=== PATIENT | female | born 1950 | race Asian ===

== ENCOUNTER 2017-09-04 16:15 | Inpatient (IN) | payer MEDICARE, OTHER ==
[2017-09-04] VITALS (11 sets, daily range): BP systolic 97–150; BP diastolic 56–96
[~2017-09-04] VITALS: Ht 152.4 cm; Wt 46.3 kg
--- NOTE | 2017-09-04 17:20 | ER.PDOC ---
General Chief Complaint: General Complaint Stated Complaint: HYPOTENSIVE TRAVEL OUT OF US: No Time seen by MD: 16:50 Source: patient, EMS, other (health care sanitary technician) Exam Limitations: other (poor historian) History of Present Illness Initial Comments Pt lives at home and has 24 hr caretakers who state BP has been low for a couple days. HH came today to begin OP care of wound and found BP low 80s and called EMS who treated pt w/ fluids. And Rescue Fire Fighter Crash Fire states she has periods where she doesn't recognize people and that is baselinebut also when BP low she has depressed MS. Pt at baseline now. Pt w/o specific c/o and health care sanitary technician states pt has remote hx of substance abuse and OD. commercial census taker relates pt has been incont of stool and urine w/o diarrhea, but here , pt informed nursing and was coop w/ urine w/o incont.. Pt has hx of cva w/ R hemiparesis and unchanged by her report. Of note, pt fell a week ago and has a scalp bruise, yellow. Timing/Duration: unsure Severity: moderate Modifying Factors: improves with other Associated Symptoms: denies symptoms Allergies: Coded Allergies: Penicillins (Verified Allergy, Unknown, Rash, 09/04/17) iodine (Verified Allergy, Unknown, 09/04/17) latex (Verified Allergy, Unknown, 09/04/17) Home Meds Reported Medications Spironolactone 25MG (ALDACTONE 25MG) 25 Mg Tablet, 25 MG PO DAILY24, TAB 09/04/17 Atorvastatin 40MG (LIPITOR 40MG) 40 Mg Tablet, 40 MG PO DAILY24, TAB 09/04/17 Aspirin (ASPIR 81) 81 Mg Tablet.dr, 1 TAB PO DAILY, #30 TAB 5 Refills 09/04/17 Hydrochlorothiazide (HYDROCHLOROTHIAZIDE) 25 Mg Tablet, 1 TAB PO DAILY, #90 TAB 3 Refills 09/04/17 Clonazepam (CLONAZEPAM) 1 Mg Tablet, 1 TAB PO TID, #90 TAB 2 Refills 09/04/17 Temazepam (RESTORIL) 30 Mg Capsule, 1 CAP PO HS, #30 CAP 09/04/17 Duloxetine Hcl (CYMBALTA) 30 Mg Capsule.dr, 30 MG PO DAILY24 09/04/17 Gabapentin (GABAPENTIN) 400 Mg Capsule, 400 MG PO TID, CAPSULE 09/04/17 Metoprolol Tartrate 50MG (LOPRESSER 50MG) 50 Mg Tablet, 50 MG PO BID for HYPERTENSION, #60 TAB 09/04/17 Baclofen (BACLOFEN) 10 Mg Tablet, 10 MG PO TID, TABLET 09/04/17 Diclofenac Sodium (DICLOFENAC SODIUM) 75 Mg Tablet.dr, 75 MG PO BID 09/04/17 Pregabalin (LYRICA) 25 Mg Capsule, 25 MG PO TID, CAPSULE 09/04/17 Lisinopril (LISINOPRIL) 10 Mg Tablet, 1 TAB PO DAILY, #30 TAB 5 Refills 09/04/17 Cetirizine Hcl (ZYRTEC) 10 Mg Tablet, 10 MG PO DAILY24, TABLET 09/04/17 Clonidine Hcl (CLONIDINE HCL) 0.1 Mg Tablet, 1 TAB PO BID, #30 TAB 2 Refills 09/04/17 Past Medical History Medical History: CVA/TIA/stroke, heart attack, hypertension, other (foot ulcer) Social History Smoking: non-smoker Reviewed Nursing Reviewed: Vital Signs, Abn. Noted, Nursing Assessment Review of Systems Constitutional: denies diaphoresis, denies fever, denies weakness EENTM: denies blurred vision, denies double vision, denies throat pain Respiratory: denies cough, denies orthopnea, denies shortness of breath, denies wheezing Cardiovascular: denies chest pain, denies edema, denies palpitations, denies syncope Gastrointestinal: denies abdominal pain, denies diarrhea, denies nausea, denies vomiting Genitourinary: denies dysuria, denies frequency Musculoskeletal: denies back pain, denies joint swelling, denies muscle pain Skin: see HPI, denies change in color, denies rash, other Psychiatric/Neurological: see HPI All Other Systems: Reviewed and Negative Physical Exam General Appearance: No Apparent Distress, WD/WN EENT: eyes nml inspection, nml ENT inspection (scalp yellow hematoma), pharynx nml Neck: Non-Tender, Full Range of Motion Respiratory: chest non-tender, lungs clear, normal breath sounds, no respiratory distress CVS: reg rate & rhythm, no murmur, no gallop, pulses nml, nml capillary refill Gastrointestinal: Normal Bowel Sounds, No Organomegaly, No Pulsatile Mass, Non Tender Back: Normal Inspection, No CVA Tenderness, No Vertebral Tenderness Extremities: Other (no use of RUE RLE) Neurologic/Psychiatric: day care assistant II-XII NML as Tested, No Motor/Sensory Deficits, Alert, Normal Mood/Affect, Oriented x 3, Motor Weakness (no change in baseline) Skin: Normal Color, Warm/Dry, Other (breakdown L planter surface w/o infection) Results/Orders Results/Orders Laboratory Tests Test 09/04/17 00:00 09/04/17 17:40 09/04/17 17:50 09/04/17 19:10 Urine Collection Type CATH VOID Urine Color STRAW (YELLOW) YELLOW (YELLOW) Urine Appearance CLEAR (CLEAR) CLOUDY (CLEAR) Urine Bilirubin NEGATIVE MG/DL (NEGATIVE) NEGATIVE MG/DL (NEGATIVE) Urine Ketones 5 mg/dL (NEGATIVE) 5 mg/dL (NEGATIVE) Urine Specific [place] 1.005 (1.005-1.035) 1.010 (1.005-1.035) Urine pH 5 (5.0-6.0) 5 (5.0-6.0) Urine Protein NEGATIVE (NEGATIVE) NEGATIVE (NEGATIVE) Urine Urobilinogen NORMAL (NEGATIVE) NORMAL (NEGATIVE) Urine Nitrate POSITIVE (NEGATIVE) POSITIVE (NEGATIVE) Urine Leukocyte Esterase NEGATIVE (NEGATIVE) NEGATIVE (NEGATIVE) Urine Blood NEGATIVE (NEGATIVE) NEGATIVE (NEGATIVE) Urine RBC NONE SEEN RBC/HPF (NONE 0-2 RBC/HPF (NONE SEEN) Urine WBC 0-2 WBC/HPF (0-2) 5-10 WBC/HPF (0-2) Urine Squamous Epithelial Cells NONE SEEN #/HPF (FEW) FEW #/HPF (FEW) Urine Bacteria FEW (NONE SEEN) MANY (NONE SEEN) Urine Glucose NORMAL (NEGATIVE) NORMAL (NEGATIVE) White Blood Count 7.9 10^3/uL (4.5-11.0) Red Blood Count 4.36 10^6/uL (4.00-5.20) Hemoglobin 10.5 g/dL (12.0-15.0) Hematocrit 33.8 % (36.0-46.0) Mean Corpuscular Volume 77.5 fL (78-100) Mean Corpuscular Hemoglobin 24.1 pg (26-34) Mean Corpuscular Hemoglobin Concent 31.1 g/dL (33-37) Red Cell Distribution Width 22.4 % (11.5-14.5) Platelet Count 196 10^3/uL (150-400) Mean Platelet Volume 11.3 fL (7.8-11.0) Neutrophils (%) (Auto) 52.2 % (41.0-85.0) Lymphocytes (%) (Auto) 35.5 % (24.0-44.0) Monocytes (%) (Auto) 7.3 % (5.0-12.0) Neutrophils # (Auto) 4.1 10^3/uL (1.8-7.7) Lymphocytes # (Auto) 2.8 10^3/uL (1.0-4.8) Monocytes # (Auto) 0.6 10^3/uL (0.3-0.8) Absolute Immature Granulocyte (auto 0.02 10^3 u/L (0-2) Eosinophils % 4.1 % (0.0-5.0) Basophils % 0.6 % (0.0-0.2) Basophils # 0.1 10^3/uL (0.0-0.1) Eosinophil Count 0.3 10^3/uL (0.0-0.2) Prothrombin Time 10.3 SEC (9.8-11.9) Prothrombin Time INR (Non-Therap) 1.0 Activated Partial Thromboplast Time 26.7 SEC (24.67-30.72) D-Dimer 1.17 mg/L (0.19-0.49) Sodium Level 130 mmol/L (132-145) Potassium Level 5.4 mmol/L (3.6-5.2) Chloride Level 102.0 mmol/L (96-109) Carbon Dioxide Level 17.2 mmol/L (20.0-32) Anion Gap 16.2 Blood Urea Nitrogen 52 mg/dL (7-18) Creatinine 1.49 mg/dL (0.59-1.40) Estimated GFR () 42.4 (>/=60) BUN/Creatinine Ratio 34.0 Glucose Level 70 mg/dL (70-110) Calcium Level 8.3 mg/dL (8.4-10.5) Total Bilirubin 0.5 mg/dL (0.2-1.0) Aspartate Amino Transf (AST/SGOT) 31 U/L (0-35) Alanine Aminotransferase (ALT/SGPT) 22 U/L (12-78) Alkaline Phosphatase 74 U/L (50-136) Troponin I < 0.02 ng/mL (0.00-0.05) Pro-B-Type Natriuretic Peptide 118 pg/mL (0-125) Total Protein 6.5 g/dL (6.4-8.2) Albumin 2.9 g/dL (3.4-5.0) Globulin 3.6 Percent Immature Gran (Cell Imm) 0.30 % (0.00-0.50) Helicobacter pylori Screen NEGATIVE (NEGATIVE) Urine Opiates (GC/MS) NEGATIVE ng/mL (CUT-OFF:300) Urine Amphetamine Qualitative NEGATIVE ng/mL (CUTOFF:1000) Urine Barbiturates, Qualitative NEGATIVE ng/mL (CUT-OFF:200) Ur Tricyclic Antidepressants Screen NEGATIVE Urine Phencyclidine (PCP) (TLC) NEGATIVE ng/mL (CUT-OFF:25) Urine Benzodiazepines, Qualitative POSITIVE ng/mL (CUT-OFF:200) Urine Cocaine Qualitative NEGATIVE ng/mL (CUT-OFF:300) Ur Tetrahydrocannabinol (THC) Scrn POSITIVE ng/mL (CUT-OFF:50) Blood Gas Sample Site LEFT BRACHIAL ARTRY Blood Gas pH 7.310 (7.350-7.450) Blood Gas PCO2 39.4 mmHg (35.0-45.0) Blood Gas PO2 69.1 mmHg (75.0-100.0) Blood Gas HCO3 19.4 mmol/L (22.0-26.0) Blood Gas Base Excess -6.4 mmol/L (-2.0-2.0) Peter Test N/A Arterial Blood Oxygen Saturation 91.0 % (95-) Deoxyhemoglobin 8.7 % (0.2-0.6) Carboxyhemoglobin 3.5 % (0.5-1.5) Methemoglobin 0.3 % (0.2-0.6) Total Hemoglobin 11.2 % (13.5-17.5) Total Oxygen Concentration 13.8 % (13.5-17.5) Lactic Acid (Blood Gas) 0.8 MMOL/L (0.5-1.0) Oxygen Delivery Method (LAB) RA FiO2 21 % (20-101) Bicarbonate 20.6 mmol/L (23-27) Administered Medications Medications (Trade) Dose Ordered Sig/Rd Route PRN Reason Start Time Stop Time Status Last Admin Dose Admin Sodium Chloride 1,000 ml @ 1,200 mls/hr Q50M STAT IV 09/04/17 19:01 09/04/17 19:50 DC 09/04/17 19:17 Ceftriaxone Sodium 1000 mg/ Sodium Chloride 100 ml @ 100 mls/hr STAT IV 09/04/17 19:30 10/04/17 19:29 09/04/17 20:16 Atropine Sulfate (Atropine Sulfate) 0.5 mg STAT STAT IV 09/04/17 19:53 09/04/17 19:54 DC 09/04/17 20:10 Progress Progress Bp has been 100s here and pt caox3 and aware of why she was sent and w/o c/o will obs overnight if no other findings. R/o ICH, [place], Infection, PE, substance use/abuse Bp now dropped and HR 47, will tx atropine, fluid bolus, unable to do PE study given renal failure, will hydrate, Lovinox and study after improved renal function; Dx. Ac Metabolic Acidosis hypotension Bradycardia hyponatremia Acute Renal Failure Substance Abuse R/O SAGAR poss uti-- will tx w/ rocephin EKG/XRAY/CT/US EKG Comments: sinus clement 54, no acute ST changes XRAY: chest XRAY Comments: nad CT Comments: no acute on CT head Consult/PCP Time Consult/PCP Called: 19:45 Consult/PCP: Niko Reason/Comments: admit ICU Departure Time of Disposition: 19:45 Disposition: 09 ADMITTED INPATIENT Impression: Primary Impression: Hypotension Qualified Codes: I95.9 - Hypotension, unspecified Additional Impressions: Bradycardia Acute renal failure Qualified Codes: N17.9 - Acute kidney failure, unspecified Metabolic acidosis Condition: Critical Referrals: PCP,UNKNOWN (PCP) PRIMARY CARE PROVIDER Duration or Time Spent with Pa: 45 Critical Care Note Total Time (mins): 35 MARLENA AMAYA MD Sep 04, 2017 17:20
[2017-09-04] MEDS ORDERED: ASPIRIN PO PRN (17:30)
--- NOTE | 2017-09-04 17:38 | NUR ---
Yogi Spoke to Jen from [facility]. She stated that this was her first visit was today but that she had talked to Dr. Cruz, the patients certified midwife, nurse who told her that her blood pressure runs around 106/60. Jen gave me an updated medication list. She stated that there are cargivers in the house but are not there all the time. There is also a homeless man that comes in and out. Patients medication is set up by caregivers but not always given to patient if they are not present. Jen [facility]-[phone]
--- NOTE | 2017-09-04 17:41 | PCM.EKG ---
[facility] Test Date: 2017-09-04 Test Time: 17:42:14 Pat Name: MEENA GUERRERO [facility]: [id number]2 Gender: F Shotblaster: : 1950 Requested By: BRYAN AMAYA Order Number: [id number] Reading MD: Bryan Amaya Measurements Intervals [place] Rate: 54 P: 38 [place]: 170 QRS: 2 QRSD: 90 T: 9 QT: 470 QTc: 445 Interpretive Statements Sinus bradycardia Otherwise normal ECG No previous ECG available for comparison Electronically Signed On 09-05-2017 1:57:39 CDT by Bryan Amaya Please click the below link to view image of tracing.
[2017-09-04 17:42] LABS: BASOPHIL # 0.1 10^3/uL (0.0-0.1); BASOPHIL % 0.6 % (0.0-0.2); EOSINOPHIL # 0.3 10^3/uL (0.0-0.2); EOSINOPHIL % 4.1 % (0.0-5.0); HEMOGLOBIN 10.5 g/dL (12.0-15.0); LYMPHOCYTES # 2.8 10^3/uL (1.0-4.8); LYMPHOCYTES % 35.5 % (24.0-44.0); MEAN CELL HGB 24.1 pg (26-34); MEAN CELL HGB CONCENTRATION 31.1 g/dL (33-37); MEAN CORP VOLUME 77.5 fL (78-100); MEAN PLATELET VOLUME 11.3 fL (7.8-11.0); MONOCYTES # 0.6 10^3/uL (0.3-0.8); MONOCYTES % 7.3 % (5.0-12.0); NEUTROPHIL # 4.1 10^3/uL (1.8-7.7); NEUTROPHILS % 52.2 % (41.0-85.0); RED CELL DISTRIBUTION WIDTH 22.4 % (11.5-14.5); WHITE BLOOD CELL 7.9 10^3/uL (4.5-11.0)
--- NOTE | 2017-09-04 17:50 | NUR ---
CT Patient going to CT at this time
--- NOTE | 2017-09-04 17:51 | DIREP ---
PROCEDURE:CHEST 1 VIEW COMPARISON:None. INDICATIONS:hypotension FINDINGS: LUNGS/PLEURA:Lungs are clear of focal consolidation. No evidence of pleural effusion. VASCULATURE:Unremarkable pulmonary vasculature. CARDIAC:No cardiac silhouette abnormality or cardiomegaly. CHRISTINE/MEDIASTINUM:No visible mass or adenopathy. BONES:No acute fracture. OTHER:Patient is kyphotic. No additional findings. CONCLUSION: 1. No acute cardiopulmonary changes. Dictated by: Eric Saldivar M.D. on 09/04/2017 at 05:50 PM
[2017-09-04 17:54] LABS: BILIRUBIN,URINE NEGATIVE (NEGATIVE); UROBILINOGEN,URINE NORMAL (NEGATIVE)
[2017-09-04 18:01] LABS: APPEARANCE,URINE CLOUDY (CLEAR); UA COLOR YELLOW (YELLOW)
[2017-09-04] MEDS ORDERED: CETI10TA24 PO (18:02)
[2017-09-04] MEDS ORDERED: CLON0.1T PO (18:02)
[2017-09-04] MEDS ORDERED: LISI10TA2 PO (18:03)
[2017-09-04] MEDS ORDERED: PREG25CA PO (18:04)
[2017-09-04 18:07] LABS: ALANINE AMINOTRANSFERASE(ML) 22 U/L (12-78); ALKALINE PHOSPHATASE 74 U/L (50-136); ASPARTATE AMINO TRANSFERASE 31 U/L (0-35); CALCIUM 8.3 mg/dL (8.4-10.5); CARBON DIOXIDE 17.2 mmol/L (20.0-32); GLUCOSE 70 mg/dL (70-110)
--- NOTE | 2017-09-04 18:10 | DIREP ---
PROCEDURE: CT HEAD BRAIN W/O CONTRAST TECHNIQUE:Axial acquisition. Noncontrast COMPARISON:None. INDICATIONS:ams/fall FINDINGS: VENTRICLES:Mild Porencephalic dilatation of the posterior left lateral ventricle and the occipital horn. CEREBRUM:Focal hypodense white matter in the left occipital parietal cortex and subjacent white matter. This extends into the centrum semiovale on the left. There is a single focus of encephalomalacia right occipital lobe with the midline. These represent old CVAs CEREBELLUM:Normal. BRAINSTEM:Normal. SKULL:Normal. SINUSES:Normal. OTHER:Negative. CONCLUSION:Old left occipital parietal is CVA. Small lacunar type infarct occipital lobe right Dictated by: Molina Fan MD on 09/04/2017 at 06:06 PM
[2017-09-04] MEDS ORDERED: DICL75TA2 PO (18:14)
[2017-09-04] MEDS ORDERED: BACL10TA PO (18:19)
[2017-09-04] MEDS ORDERED: METO50TA2 PO (18:23)
[2017-09-04] MEDS ORDERED: GABA400C10 PO (18:25)
[2017-09-04] MEDS ORDERED: DULO30CA2 PO (18:26)
[2017-09-04] MEDS ORDERED: TEMA30CA6 PO (18:27)
[2017-09-04] MEDS ORDERED: CLON1TAB3 PO (18:28)
[2017-09-04] MEDS ORDERED: HYDR25TA9 PO (18:29)
[2017-09-04] MEDS ORDERED: ASPI-484 PO (18:30)
[2017-09-04] MEDS ORDERED: ATOR40TA PO (18:31)
[2017-09-04] MEDS ORDERED: SPIR25TA PO (18:32)
[2017-09-04] MEDS ORDERED: NS 1000ML 1,000 ML IV STA (19:01)
[2017-09-04] MEDS ORDERED: ROCEPHIN ONE (19:07)
[2017-09-04] MEDS ORDERED: NS 100ML 100 ML IV ONE (19:07)
[2017-09-04] MEDS ORDERED: NS 1000ML 1,000 ML ONE (19:07)
[2017-09-04 19:24] LABS: ABG PCO2 39.4 mmHg (35.0-45.0); BE(B) -6.4 mmol/L (-2.0-2.0); HCO3act 19.4 mmol/L (22.0-26.0); pO2 69.1 mmHg (75.0-100.0)
[2017-09-04] MEDS ORDERED: ROCEPHIN 1,000 MG in NS 100ML 100 ML IV SCH ×2 (19:30→20:30)
[2017-09-04] MEDS ORDERED: ATROPINE SULFATE ONE (19:51)
[2017-09-04] MEDS ORDERED: ATROPINE SULFATE IV STA (19:53)
--- NOTE | 2017-09-04 19:54 | NUR ---
Niko Vick on phone with Dr. Pope
[2017-09-04] MEDS ORDERED: LOVENOX SQ STA (19:58)
[2017-09-04] MEDS ORDERED: ASPIRIN PO STA (19:58)
[2017-09-04] MEDS ORDERED: ASPIRIN ONE (20:12)
[2017-09-04] MEDS ORDERED: LOVENOX SQ ONE (20:12)
[2017-09-04] MEDS ORDERED: ZOFRAN IV PRN (20:30)
[2017-09-04] MEDS ORDERED: NS 1000ML 1,000 ML SCH (20:30)
[2017-09-04] MEDS ORDERED: LIPITOR PO SCH (20:30)
[2017-09-04] MEDS ORDERED: VENTOLIN IH PRN (20:30)
[2017-09-04] MEDS ORDERED: DUONEB 0.5 MG-3 MG/3 ML SOLN IH SCH (20:30)
[2017-09-04] MEDS ORDERED: TYLENOL PO PRN (20:30)
[2017-09-04] MEDS ORDERED: LYRICA PO SCH (21:00)
[2017-09-04] MEDS ORDERED: VOLTAREN PO SCH (21:00)
[2017-09-04] MEDS ORDERED: RESTORIL PO SCH (21:00)
--- NOTE | 2017-09-04 21:13 | NUR ---
Admit ICU 2 Patient admitted to ICU 2 via stretcher accompanied by ER ASSOCIATE PROFESSOR OF ART HISTORY, and private caregiver. Patient assisted to bed with assist x3 and lateral transfer. Patient positioned to comfort, clothes removed and hospital gown applied. Monitor applied in usual fashion. Patient on room air, drowsy though oriented. IV patent to right AC. Call light placed in reach. Patient provided with room orientation. Private caregiver inquired about staying at bedside with patient. Reviewed ICU visiting hour procedures, including she may stay with patient in room, though there may be times she may be need to sit in waiting area due to procedures with other patients per HIPPA. Offered to allow caregiver to stay in room tonight with the understanding that this could change based on patient condition and ICU routines. Caregiver voiced wanting to be at bedside and not going between waiting area and bedside. This nurse again offered to allow caregiver to stay at bedside tonight, though caregiver declined. Admission history provided by caregiver, due to patient refusal to answer questions.
[2017-09-04] MEDS ORDERED: LOVENOX SQ SCH (21:30)
[2017-09-04] MEDS: NS 1000ML 1,000 ML IV SCH ×2 (21:40→22:00)
[2017-09-04] MEDS: LOPRESSOR PO SCH (21:43)
--- NOTE | 2017-09-04 21:50 | NUR ---
Dc Catheter Insertion Following physician order and patient education, pericare performed. 18 Fr Dc Catheter inserted using sterile technique. 350 +mL light yellow urine returned with some sediment. Cath securement device applied to left thigh. Pericare performed. Patient tolerated well. Urine Specimen obtained at this time as per policy.
[2017-09-04] MEDS: ALDACTONE PO SCH (22:00)
[2017-09-04] MEDS: KLONOPIN PO SCH (22:00)
[2017-09-04] MEDS: CLARITIN PO SCH (22:00)
[2017-09-04] MEDS: LIORESAL PO SCH (22:00)
[2017-09-04] MEDS: NEURONTIN PO SCH (22:00)
[2017-09-04] MEDS: CYMBALTA PO SCH (22:00)
--- NOTE | 2017-09-04 22:00 | NUR ---
HS Medications Based on patient vitals, current drowsy state, HS medications were held including Metoprolol, Baclofen, Gabapentin. Patient refused other medications including Claritin, Lipitor.
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
--- NOTE | 2017-09-04 22:32 | NUR ---
Temp/Sunitha Lancaster Difficulty obtaining temp. Patient cold to touch. Patient refused rectal. Temp after several attempts 96.4. Notified Dr. Pope. Order received for Sunitha Lancaster.
[2017-09-04] MEDS ORDERED: NS IV SCH (22:42)
[2017-09-04] MEDS ORDERED: ROCEPHIN IV SCH (22:42)
[2017-09-04 23:18] LABS: BILIRUBIN,URINE NEGATIVE (NEGATIVE); UROBILINOGEN,URINE NORMAL (NEGATIVE)
[2017-09-04 23:38] LABS: APPEARANCE,URINE CLEAR (CLEAR); UA COLOR STRAW (YELLOW)
[2017-09-04 23:39] LABS: WBC,URINE 0-2 WBC/HPF (0-2)
[2017-09-05] VITALS (45 sets, daily range): BP systolic 105–157; BP diastolic 45–102
[2017-09-05] MEDS: NICOTINE 14MG PATCH TD SCH ×2 (00:10→08:52)
--- NOTE | 2017-09-05 02:03 | NUR ---
Sunitha Lancaster removed.
--- NOTE | 2017-09-05 03:20 | NUR ---
Temp/Sunitha Terrenceggkyara Patient awake, voicing "I need that warmer back"/ Temp 97.7. Applied Sunitha Lancaster at this time.
[2017-09-05 06:19] LABS: BASOPHIL % 0.5 % (0.0-0.2); EOSINOPHIL # 0.2 10^3/uL (0.0-0.2); EOSINOPHIL % 2.6 % (0.0-5.0); HEMOGLOBIN 11.2 g/dL (12.0-15.0); LYMPHOCYTES # 2.1 10^3/uL (1.0-4.8); LYMPHOCYTES % 26.7 % (24.0-44.0); MEAN CELL HGB 23.8 pg (26-34); MEAN CELL HGB CONCENTRATION 30.6 g/dL (33-37); MEAN CORP VOLUME 77.7 fL (78-100); MEAN PLATELET VOLUME 11.7 fL (7.8-11.0); MONOCYTES # 0.4 10^3/uL (0.3-0.8); MONOCYTES % 5.5 % (5.0-12.0); NEUTROPHIL # 5.1 10^3/uL (1.8-7.7); NEUTROPHILS % 64.2 % (41.0-85.0); RED CELL DISTRIBUTION WIDTH 22.6 % (11.5-14.5)
[2017-09-05 06:48] LABS: CALCIUM 8.5 mg/dL (8.4-10.5); CARBON DIOXIDE 18.1 mmol/L (20.0-32)
--- NOTE | 2017-09-05 07:00 | NUR ---
Report Report to oncoming shift. Patient awake, alert and drinking coffee. Patient requests morning medications. Denies pain. No complaints voiced. Call light in reach. Relinquish care.
--- NOTE | 2017-09-05 07:00 | NUR ---
RECEIVED REPORT AND PATIENT CARE ASSUMED.
--- NOTE | 2017-09-05 08:00 | NUR ---
ASSESSMENT PATIENT ALERT AND ORIENTED X3. HISTORY OF CVA AFFECTING TO RIGHT SIDE. PASSIVE ROM DONE AND TEACHING GIVEN TO PATIENT ON ROM. PATIENT VOICED UNDERSTANDING. LUNGS CTAB. NO PITTING EDEMA NOTED. SCD ON BILATERALLY.
[2017-09-05] MEDS ORDERED: PULMICORT IH ONE (08:14)
[2017-09-05 08:16] LABS: ANISOCYTOSIS 2+ (NEGATIVE); MICROCYTOSIS 1+ (NEGATIVE)
[2017-09-05] MEDS ORDERED: CATAFLAM PO ONE (08:33)
[2017-09-05] MEDS ORDERED: LIPITOR ONE (08:35)
[2017-09-05] MEDS: NS 1000ML 1,000 ML IV SCH ×6 (08:41→19:30)
[2017-09-05] MEDS: NEURONTIN PO SCH ×3 (08:47→20:21)
[2017-09-05] MEDS: KLONOPIN PO SCH ×3 (08:47→20:23)
[2017-09-05] MEDS: CLARITIN PO SCH (08:48)
[2017-09-05] MEDS: LIORESAL PO SCH ×3 (08:49→20:22)
[2017-09-05] MEDS: LOPRESSOR PO SCH ×2 (08:50→20:21)
[2017-09-05] MEDS: ALDACTONE PO SCH (08:50)
[2017-09-05] MEDS: CYMBALTA PO SCH (08:52)
[2017-09-05] MEDS ORDERED: ASPIRIN EC PO SCH (09:00)
[2017-09-05] MEDS ORDERED: ZESTRIL PO SCH (09:00)
[2017-09-05] MEDS ORDERED: HYDROCHLOROTHIAZIDE PO SCH (09:00)
--- NOTE | 2017-09-05 09:45 | NUR ---
DR. VAZQUEZ AT BEDSIDE ASSESSING AND DISCUSSING PLAN OF CARE WITH PATIENT. PATIENT TO TRANSFER TO MED/SURG TODAY.
--- NOTE | 2017-09-05 10:14 | NUR ---
RUBBER BOOTS AND SHOES REPAIRER AT BEDSIDE TALKING TO PATIENT AND EVALUATING DIETARY NEEDS.
[2017-09-05] MEDS: VOLTAREN PO SCH ×2 (11:00→20:22)
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
[2017-09-05] MEDS ORDERED: VOLTAREN PO ONE (11:31)
--- NOTE | 2017-09-05 11:55 | NUR ---
ARRIVAL PATIENT ARRIVED ON MED-SURG UNIT AT THIS TIME, ROOM 313. RECEIVED REPORT FROM ESSIE LYNNE. ASSUMED CARE FOR PATIENT.
--- NOTE | 2017-09-05 12:00 | NUR ---
REFRESHMENTS ICE CHIPS AND COFFEE PROVIDED AT THIS TIME. NO S/S OF DISTRESS. CALL LIGHT IN REACH, BED IS LOW AND LOCKED. WILL CONTINUE TO MONITOR PATIENT.
--- NOTE | 2017-09-05 12:05 | NUR ---
TRANSFER TO MED/SURG PATIENT TRANSFERRED TO MED/SURG VIA ON ROOM AIR. NO DISTRESS NOTED. REPORT GIVEN TO RODRIGO CAMPUZANO LVN. PATIENT TRANSFERRED FROM TO BED WITH 2 PERSON ASSIST. HOB ELEVATED TO COMFORT. CALL LIGHT WITHIN REACH.
[2017-09-05] MEDS ORDERED: ZOFRAN IV PRN (12:30)
--- NOTE | 2017-09-05 12:42 | HPH ---
ADMIT DATE: 09/04/2017 The patient was seen in the Emergency Room prior to admission to the ICU. CHIEF COMPLAINT: Hypotensive. HISTORY OF PRESENT ILLNESS: This patient is a 67-year-old woman with a past medical history significant for CVA with residual deficits. She lives at home, has caregivers at home. Her caregiver has noted over the last couple of days her blood pressure has been somewhat low. Reportedly, the blood pressure was in the low 80s. EMS was called and she was treated with some fluids en route. She has very poor functional status. She can sometimes transfer to wheelchair, but most of the time she requires full assistance with all ADLs. She has chronic right hemiparesis after a previous stroke. PAST MEDICAL HISTORY: Includes CVA with residual right hemiparesis, coronary artery disease with prior ME, hypertension, peripheral vascular disease with foot ulcer and hyperlipidemia. PAST SURGICAL HISTORY: No recent surgeries. ALLERGIES: ALLERGIC TO PENICILLIN, IODINE, LACTOSE, LATEX AND WHEAT. HOME MEDICATIONS: List provided includes aspirin 81 mg daily, atorvastatin 40 mg daily, baclofen 10 mg 3 times a day, Zyrtec 10 mg daily, clonazepam 1 mg 3 times a day, clonidine 0.1 mg twice a day, diclofenac 75 mg b.i.d., Cymbalta 30 mg daily, gabapentin 400 mg 3 times a day, hydrochlorothiazide 25 mg daily, lisinopril 10 mg daily, metoprolol tartrate 50 mg b.i.d., Lyrica 25 mg 3 times a day, Aldactone 25 mg daily, temazepam 30 mg at night as needed for insomnia. SOCIAL HISTORY: She lives at home, has caregivers at home. She does have current tobacco use, no illicit drug use or alcohol use. FAMILY HISTORY: Negative for early coronary artery disease or diabetes. REVIEW OF SYSTEMS: CARDIAC: She denies chest pain or shortness of breath. PULMONARY: No cough, sputum production or pleuritic chest pain. GASTROINTESTINAL: No nausea, vomiting, diarrhea or constipation. All else negative in 10 point review of system except as in HPI. PHYSICAL EXAMINATION: VITAL SIGNS: Upon arrival to Emergency Room, height is 152.4 cm, weight 43.1 kilograms, temperature 97.2, pulse of 95, respiratory rate is 18, blood pressure 97/56, O2 saturation 98% on room air. GENERAL: She is alert, chronic ill-appearing lady. HEENT: Pupils equal, round, reactive to light. Sclerae are anicteric. Oropharynx is clear. Mucous membranes are slightly dry. NECK: Supple, no lymphadenopathy. CARDIOVASCULAR: At time of exam was slightly bradycardic, regular rhythm. LUNGS: Clear bilaterally. No wheezing, shallow inspiratory effort. ABDOMEN: Soft. Bowel sounds are present, nontender to palpation. EXTREMITIES: No cyanosis, clubbing or significant edema. NEUROLOGIC: She still has right hemiparesis that is chronic. INITIAL LABORATORY DATA: CBC: White count 7.9, hemoglobin 10.5 and platelets 196. Differential: 52% neutrophils, 35% lymphocytes, 7% monocytes. Sodium 130, potassium 5.4, chloride 102, CO2 17, BUN 52, creatinine 1.49, glucose is 70, calcium is 8.3, total bilirubin 0.5, AST 31, ALT 22, alkaline phosphatase 74, total protein is 6.5, albumin is 2.9, troponin I is less than 0.02. ABG done in the ER, pH is 7.31, pCO2 39.4, pO2 69.1, base excess negative 6.4, lactate 0.8, d-dimer 1.17. UA, pH is 5.0, specific gravity is 1.005, does show many bacteria, few squamous epithelial cells, positive nitrite. Drug screen is positive for marijuana and benzodiazepines. Serology is negative for H. pylori. IMAGING STUDIES: CT head performed in the Emergency Room does not have any acute process, old infarcts noted. Chest x-ray is negative for acute process. ASSESSMENT AND PLAN: The patient is a 67-year-old woman here with metabolic encephalopathy secondary to urinary tract infection present on admission with previous CVA with right hemiparesis. She had some bradycardia and hypotension in the ER secondary to likely urinary tract infection with history of tobacco abuse. 1. IV fluid hydration. 2. We will continue IV antibiotics started in the ER. We will treat with ceftriaxone. It is likely urinary tract infection. There is no indication she has pulmonary involvement. 3. Continue cardiovascular medications, but we will hold beta james as indicated for bradycardia. She had a couple of bradycardic episodes that were asymptomatic. 4. Diet as tolerated. 5. Appropriate p.r.n. pain and nausea medications. 6. The patient was seen in the Emergency Room. She does understand and concur with plan. She is her own decision maker. 7. DVT prophylaxis will be with SCDs. Time spent on 09/04/2017 is 1 hour. Frantz Pope MD DR: LENKA/nino JOB# [id number]
[2017-09-05] MEDS ORDERED: VENTOLIN IH PRN (13:00)
[2017-09-05] MEDS ORDERED: DUONEB 0.5 MG-3 MG/3 ML SOLN IH ONE (14:19)
[2017-09-05] MEDS: DUONEB 0.5 MG-3 MG/3 ML SOLN IH SCH ×2 (14:24→20:36)
[2017-09-05] MEDS: LYRICA PO SCH ×2 (15:00→20:27)
--- NOTE | 2017-09-05 15:11 | NUR ---
CONTACTED PHARMACY AT THIS TIME. 25MG LYRICA UNAVAILABLE. WILL CONTACT MD TO SEE IF THERE IS AN AVAILABLE ALTERNATIVE.
--- NOTE | 2017-09-05 16:20 | NUR ---
STATUS PATIENT RESTING PEACEFULLY IN BED WITH EYES CLOSED. RESPIRATIONS EVEN, NON-LABORED. NO S/S OF DISTRESS. CALL LIGHT IN REACH, BED IS LOW AND LOCKED. WILL CONTINUE TO MONITOR.
--- NOTE | 2017-09-05 18:07 | NUR ---
report received report from offgoing shift
[2017-09-05] MEDS ORDERED: ROCEPHIN 1,000 MG in NS 100ML 100 ML IV SCH (19:30)
[2017-09-05] MEDS: LIPITOR PO SCH (20:20)
[2017-09-05] MEDS ORDERED: LOVENOX SQ ONE (20:25)
[2017-09-05] MEDS: RESTORIL PO SCH (20:28)
[2017-09-05] MEDS: LOVENOX SQ SCH (20:28)
[2017-09-05] MEDS ORDERED: CYMBALTA PO SCH (20:30)
[2017-09-05] MEDS ORDERED: ALDACTONE PO SCH (20:30)
[2017-09-05] MEDS ORDERED: CLARITIN PO SCH (20:30)
[2017-09-05] MEDS ORDERED: ROCEPHIN ONE (22:00)
[2017-09-05] MEDS ORDERED: NS 50ML 50 ML IV ONE (22:01)
[2017-09-05] MEDS: ROCEPHIN IV SCH (22:06)
[2017-09-05] MEDS: NS IV SCH (22:06)
[2017-09-06 00:02] VITALS: BP 112/74
[2017-09-06] MEDS: DUONEB 0.5 MG-3 MG/3 ML SOLN IH SCH ×4 (03:19→21:20)
--- NOTE | 2017-09-06 04:38 | NUR ---
report report given to Collin Hewitt
[2017-09-06] MEDS: NS 1000ML 1,000 ML IV SCH ×4 (05:17→15:41)
[2017-09-06 10:15] VITALS: BP 118/82
[2017-09-06] MEDS: NICOTINE 14MG PATCH TD SCH (10:46)
[2017-09-06] MEDS: LOPRESSOR PO SCH ×2 (10:47→20:33)
[2017-09-06] MEDS: HYDROCHLOROTHIAZIDE PO SCH (10:47)
[2017-09-06] MEDS: LIORESAL PO SCH ×3 (10:47→20:34)
[2017-09-06] MEDS: NEURONTIN PO SCH ×3 (10:48→20:31)
[2017-09-06] MEDS: CLARITIN PO SCH (10:48)
[2017-09-06] MEDS: ASPIRIN EC PO SCH (10:48)
[2017-09-06] MEDS: ZESTRIL PO SCH (10:48)
[2017-09-06] MEDS: CYMBALTA PO SCH (10:48)
[2017-09-06] MEDS: LYRICA PO SCH ×3 (10:49→21:00)
[2017-09-06] MEDS: KLONOPIN PO SCH ×3 (10:49→20:31)
[2017-09-06] MEDS: VOLTAREN PO SCH ×2 (10:49→20:33)
[2017-09-06] MEDS: ALDACTONE PO SCH (10:49)
--- NOTE | 2017-09-06 12:53 | PNH ---
DATE: 09/05/2017 SUBJECTIVE: She has tolerated breakfast well. She had 1 episode of bradycardia upon arrival to the ICU last night, but otherwise has done very well. No other acute changes. OBJECTIVE: VITAL SIGNS: T-max last 24 hours is 98.4, pulse 78, respiratory rate is 18, blood pressure 119/45 and O2 saturation 95% on room air. GENERAL: She is alert, in no acute distress at time of exam. HEENT: Pupils equal, round and reactive to light. Sclerae are anicteric. Oropharynx is clear. Mucous membranes are moist. NECK: Supple, no lymphadenopathy. CARDIOVASCULAR: At time of exam was regular rate and rhythm. LUNGS: Clear bilaterally with some fine end expiratory wheezing. ABDOMEN: Soft. Bowel sounds are present, nontender to palpation. EXTREMITIES: No cyanosis, clubbing or significant edema. NEUROLOGIC: She has chronic right hemiparesis. LABORATORY DATA: CBC: White count 8.0, hemoglobin 11.2 and platelets 214. Differential: 64% neutrophils, 27% lymphocytes, 5% monocytes. Sodium 143, potassium 4.7, chloride 108, CO2 is 18, BUN 34, creatinine 1.19, glucose is 51 and calcium is 8.5. ASSESSMENT AND PLAN: This patient is a 67-year-old woman here with resolved acute renal failure secondary to acute tubular necrosis with recent hypotension and bradycardia with metabolic encephalopathy secondary to urinary tract infection present on admission. 1. We will move to medical floor on telemetry. 2. Continue current antibiotics, follow up urine culture and susceptibilities. 3. Continue current cardiovascular medications. We will monitor on telemetry. 4. Diet as tolerated. 5. DVT prophylaxis with SCDs. Time spent on 09/05/2017 is 30 minutes. Frantz Pope MD DR: LENKA/nino JOB# [id number]
--- NOTE | 2017-09-06 14:31 | NUR ---
At 1145 this morning patient was difficult to arouse. Patient did arouse and was able to be reoriented at this time. A home care provider was in room at the time and stated that patient does this frequently at home. Care provider also stated to this nurse at this time that there are time when she is unable to arouse the patient. Patient was placed on O2 at this time per O2 sat was 88% on room air and up to 94% with O2 at 2L per NC. Dr Pope notified of all of the above. Since this time patient has had guest in room, with frequent rounding nursing has noted patient to be alert sitting up in bed visiting with guest. At 1400 guest and patient is back to sleep with resp rate of 17. Will cont to monitor.
[2017-09-06 17:04] VITALS: BP 112/76
[2017-09-06 20:05] VITALS: BP 141/77
[2017-09-06] MEDS: RESTORIL PO SCH (20:30)
[2017-09-06] MEDS: LOVENOX SQ SCH (20:33)
[2017-09-06] MEDS: LIPITOR PO SCH (20:36)
[2017-09-06] MEDS: NS IV SCH (21:21)
[2017-09-06] MEDS: ROCEPHIN IV SCH (21:21)
[2017-09-06] MEDS: TYLENOL PO PRN (21:42)
[2017-09-07 00:30] VITALS: BP 120/75
[2017-09-07] MEDS ORDERED: SUBLIMAZE IV PRN (00:30)
[2017-09-07] MEDS: NS 1000ML 1,000 ML IV SCH ×2 (02:19→04:30)
[2017-09-07] MEDS: DUONEB 0.5 MG-3 MG/3 ML SOLN IH SCH ×2 (03:11→08:50)
[2017-09-07 05:05] VITALS: BP 129/82
--- NOTE | 2017-09-07 05:27 | PNH ---
DATE: 09/06/2017 SUBJECTIVE: There is no significant change overnight. She denies any pain. She has a very poor baseline functional status. OBJECTIVE: VITAL SIGNS: T-max last 24 hours is 99.6, pulse 83, respiratory rate is 14, blood pressure 118/82 and O2 saturation 93% on room air. GENERAL: She is alert, chronic ill-appearing lady. HEENT: Pupils equal, round, reactive to light. Sclerae are anicteric. Oropharynx is clear. Mucous membranes are moist. NECK: Supple, no lymphadenopathy. CARDIOVASCULAR: At time of exam was regular rate and rhythm. LUNGS: Clear bilaterally. No wheezing, shallow inspiratory effort. ABDOMEN: Soft. Bowel sounds are present, nontender to palpation. EXTREMITIES: No cyanosis, clubbing or significant edema. NEUROLOGIC: She still has right hemiparesis. There is no other new neurologic changes. LABORATORY DATA: Her troponins continue to be less than 0.02 x 2. Urine culture still has greater than 100,000 Gram-negative rods, but no ID and sensitivity yet. ASSESSMENT AND PLAN: This patient is a 67-year-old woman here with metabolic encephalopathy, improving towards baseline with urinary tract infection present on admission with numerous other medical problems. 1. We will continue IV fluids and IV antibiotics. 2. Continue her home medications. 3. She has a very poor baseline functional status. We will continue to support ADLs as necessary. 4. Nebulizer treatments scheduled and as needed. 5. DVT prophylaxis with Lovenox. Time spent on 09/06/2017 is 25 minutes. Frantz Pope MD DR: LENKA/nino JOB# [id number]
[2017-09-07] MEDS: TYLENOL PO PRN (07:20)
--- NOTE | 2017-09-07 07:23 | NUR ---
PAIN Pt C/O OF "THROBING, SHARP PAIN AT RATE OF 7/10 NECK DOWN", ADMINSTERED PRN TYLENOL 1000 MG PER ORDER., WILL REASSESS THE PAIN.
[2017-09-07 07:30] VITALS: BP 130/82
[2017-09-07] MEDS: LIORESAL PO SCH (08:15)
[2017-09-07] MEDS: NICOTINE 14MG PATCH TD SCH (08:16)
[2017-09-07] MEDS: NEURONTIN PO SCH (08:16)
[2017-09-07] MEDS: KLONOPIN PO SCH (08:16)
[2017-09-07] MEDS: ASPIRIN EC PO SCH (08:17)
[2017-09-07] MEDS: HYDROCHLOROTHIAZIDE PO SCH (08:17)
[2017-09-07] MEDS: ZESTRIL PO SCH (08:17)
[2017-09-07] MEDS ORDERED: CIPR500T86 PO (08:17)
[2017-09-07] MEDS: VOLTAREN PO SCH (08:17)
[2017-09-07] MEDS: LOPRESSOR PO SCH (08:18)
[2017-09-07] MEDS ORDERED: CYMBALTA ONE (08:25)
[2017-09-07] MEDS: ALDACTONE PO SCH (08:27)
[2017-09-07] MEDS: CLARITIN PO SCH (08:27)
[2017-09-07] MEDS: CYMBALTA PO SCH (08:27)
--- NOTE | 2017-09-07 08:32 | PRM.DC ---
Discharge Summary Date of Discharge: Sep 07, 2017 Reason for Visit: Altered mental status History Present Illness: (1) Chronic pain SEVERITY: MILD PERSISTENT Status: Chronic ICD Code: G89.29 - Other chronic pain SNOMED: 43771750 Assessment & Plan: Follow up with pain specialist for outpatient management (2) Benzodiazepine dependence, continuous SEVERITY: MODERATE PERSISTENT Status: Chronic ICD Code: F13.20 - Sedative, hypnotic or anxiolytic dependence, uncomplicated SNOMED: 488115245047295 Assessment & Plan: Continue current medical management, avoid oversedation (3) Acute metabolic encephalopathy Status: Resolved ICD Code: G93.41 - Metabolic encephalopathy SNOMED: 01851961, 727768819 Assessment & Plan: Treat UTI (4) Hypotension Status: Resolved ICD Code: I95.9 - Hypotension, unspecified SNOMED: 71923471 (5) UTI (urinary tract infection) SEVERITY: MILD PERSISTENT Status: Acute ICD Code: N39.0 - Urinary tract infection, site not specified SNOMED: 40527778 Assessment & Plan: Four more days of oral antibiotics at home (6) Bradycardia Status: Resolved ICD Code: R00.1 - Bradycardia, unspecified SNOMED: 04960213 (7) Acute renal failure Status: Resolved ICD Code: N17.9 - Acute kidney failure, unspecified SNOMED: 14249961 Assessment & Plan: Due to ATN, drink plenty of water at home General: Alert, Oriented X3, Cooperative, No acute distress HEENT: PERRLA, EOMI Neck: Supple, No JVD Lungs: Clear to auscultation, Normal air movement Heart: Regular rate, Normal S1, Normal S2 Abdomen: Normal bowel sounds, Soft, No tenderness Extremities: No clubbing, No cyanosis Skin: No breakdown, No significant lesion Neuro: Normal speech, Sensation intact, Cranial nerves 3-12 NL Psych/Mental Status: Mood NL Results(Labs/Rad) Laboratory Tests Test 09/06/17 00:40 09/06/17 06:10 09/06/17 11:50 Troponin I < 0.02 ng/mL < 0.02 ng/mL < 0.02 ng/mL Scheduled Aspirin (Aspir 81), 1 TAB PO DAILY, (Reported) Atorvastatin 40MG (Lipitor 40MG), 40 MG PO DAILY24, (Reported) Baclofen (Baclofen), 10 MG PO TID, (Reported) Cetirizine Hcl (Zyrtec), 10 MG PO DAILY24, (Reported) Ciprofloxacin Hcl (Cipro), 500 MG PO BID Clonazepam (Clonazepam), 1 TAB PO TID, (Reported) Clonidine Hcl (Clonidine Hcl), 1 TAB PO BID, (Reported) Diclofenac Sodium (Diclofenac Sodium), 75 MG PO BID, (Reported) Duloxetine Hcl (Cymbalta), 30 MG PO DAILY24, (Reported) Gabapentin (Gabapentin), 400 MG PO TID, (Reported) Hydrochlorothiazide (Hydrochlorothiazide), 1 TAB PO DAILY, (Reported) Lisinopril (Lisinopril), 1 TAB PO DAILY, (Reported) Metoprolol Tartrate 50MG (Lopresser 50MG), 50 MG PO BID, (Reported) Pregabalin (Lyrica), 25 MG PO TID, (Reported) Spironolactone 25MG (Aldactone 25MG), 25 MG PO DAILY24, (Reported) Temazepam (Restoril), 1 CAP PO HS, (Reported) Sepsis Evaluation @ Discharge Course Blood Pressure Systolic: 130 Blood Pressure Diastolic: 82 Blood Pressure Mean: 98 Notes see dictated report Plan Discharge Date: Sep 07, 2017 Dicharge DX: 1. Metabolic encephalopathy, 2. UTI, 3. ARF with ATN, 4. Chronic pain Discharge Disposition: Stable Plan Resume home medications plus oral Ciprofloxacin Diet and activity as tolerated Follow up with PCP and Pain Specialist next available Avoid over sedation with medications - pain and benzodiazepine Drink plenty of water Discharge plans discussed with patient, she is her own decision maker and does understand and concur with plans Time spent 25 minutes Problem Qualifiers (1) Hypotension: Hypotension type: unspecified hypotension type Qualified Codes: I95.9 - Hypotension, unspecified (2) UTI (urinary tract infection): Urinary tract infection type: acute cystitis Hematuria presence: without hematuria Qualified Codes: N30.00 - Acute cystitis without hematuria (3) Acute renal failure: Acute renal failure type: unspecified Qualified Codes: N17.9 - Acute kidney failure, unspecified GARRET VAZQUEZ MD Sep 07, 2017 08:32
[2017-09-07] MEDS: LYRICA PO SCH (09:00)
--- NOTE | 2017-09-07 09:00 | NUR ---
LYRICA 25 MG NOT AVAILABLE THIS NURSE CALLED PHARMACY ABOUT LYRICA 25 MG, PER PHARMACIST LYRICA 25 MG NOT AVAILABLE IN THE OMNICELL NOTIFIED Pt, Pt VERBALIZED UNDERSTANDING.
[2017-09-07 10:00] VITALS: BP 130/82
--- NOTE | 2017-09-07 10:00 | NUR ---
DISCHARGED\ PT DISCHARGED FROM THE UNIT [facility]ITC[facility] PACKET EDUCATION PRODDED, Pt VERBALIZED UNDERSTANDING, IV , TELE, DOWELL D/C 200 CC YELLOW URINE IN DOWELL BAG, Pt VOIDED 100 CC OF YELLOW URIN IN BEDSIDE COMMODE. Pt WAS ASSISTED BY MS QUINTANA BAHMAN IN WHEELCHAIR TO VAN IN MAIN EXIT. Addendum: 09/07/17 at 1025 by Silvano Hutchison RN - MED/METALIZER WRONG Pt CHARTING.
--- NOTE | 2017-09-07 10:00 | NUR ---
DISCHARGED\ PT DISCHARGED FROM THE UNIT EXITCARE PACKET EDUCATION PRODDED, Pt VERBALIZED UNDERSTANDING, IV , TELE, DOWELL D/C 200 CC YELLOW URINE IN DOWELL BAG, Pt VOIDED 100 CC OF YELLOW URIN IN BEDSIDE COMMODE. Pt WAS ASSISTED BY MS MARIANO CAREGIVER IN WHEELCHAIR TO VAN IN MAIN EXIT
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
--- NOTE | 2017-09-07 19:06 | DSH ---
DATE OF DISCHARGE: 09/07/2017 DISPOSITION: Routine discharge home. PRINCIPAL DIAGNOSES AT DISCHARGE: Metabolic encephalopathy secondary to urinary tract infection. OTHER DIAGNOSES: Includes benzodiazepine dependence with overuse with somnolence, chronic pain, hypertension, bradycardia, acute renal failure secondary to acute tubular necrosis. BRIEF SUMMARY: The patient was initially admitted on 09/04/2017 through the Emergency Room with complaints of altered mental status. She has a chronic right hemiparesis from a prior stroke and has significant vascular disease. There is no evidence of a new ischemic event. She was somnolent, had a urinary tract infection, which eventually grew out rangel susceptible E. coli. She also has numerous benzodiazepines and other sedating medications she takes at home and has problem with oversedation. She has chronic pain, is closely followed by pain specialist in [place]. With IV fluids, IV antibiotics, she did clinically improve. On the day of discharge, she was alert and oriented, tolerating diet. She was complaining of some mild pain, but was instructed she is to follow up with a pain specialist and she was okay with that. DISCHARGE MEDICATIONS: She will be going home on her routine medications plus ciprofloxacin 500 b.i.d. for 4 more days. DISCHARGE INSTRUCTIONS: Include drinking plenty of water. Also include avoid oversedation with medications. Discharge plans were discussed with the patient. She is her own decision maker. She does understand and concur with plans. Time spent on discharge is 25 minutes. Frantz Pope MD DR: LENKA/nino JOB# [id number]
== END 2017-09-07 10:08 | disposition home or self-care (01) | DRG 682 ==
LOC: ER 16:15 → EDBD 16:15 → ICU 19:57 → EDBD 19:57 → MS 09-05 12:13
PROVIDERS: ADMIT Internal Medicine; ATTEND Internal Medicine
DX: N17.0 Acute kidney failure with tubular necrosis (principal); G93.41 Metabolic encephalopathy; E87.2 Acidosis; I69.351 Hemiplegia and hemiparesis following cerebral infarction affecting right dominant side; I95.9 Hypotension, unspecified; E87.1 Hypo-osmolality and hyponatremia; F13.20 Sedative, hypnotic or anxiolytic dependence, uncomplicated; N39.0 Urinary tract infection, site not specified; R00.1 Bradycardia, unspecified; B96.20 Unspecified Escherichia coli [E. coli] as the cause of diseases classified elsewhere; E78.5 Hyperlipidemia, unspecified; G89.29 Other chronic pain; I73.9 Peripheral vascular disease, unspecified; I10 Essential (primary) hypertension; I25.10 Atherosclerotic heart disease of native coronary artery without angina pectoris; Z88.0 Allergy status to penicillin; Z72.0 Tobacco use; I25.2 Old myocardial infarction; Z88.8 Allergy status to other drugs, medicaments and biological substances; Z91.041 Radiographic dye allergy status; Z91.040 Latex allergy status; Z79.899 Other long term (current) drug therapy; Z79.82 Long term (current) use of aspirin
CPT/HCPCS: 36415; 36600; 70450; 71045; 80048; 80053; 80307; 81000; 82803; 83880; 84484; 85025; 85379; 85610; 85660; 85730; 86677; 87040; 87077; 87086; 87186; 93005; 94640; 96361; 96365; 96372; 96375; 99291; J0461; J0696; J1650; J7030; J7050; J7620; J7627; A9270; J8499

== ENCOUNTER 2017-09-11 13:53 | Observation (INO) | payer MEDICARE, OTHER ==
[~2017-09-11] VITALS: Ht 152.4 cm; Wt 45.9 kg
[~2017-09-11 13:53] MED LIST: ASPI-484 PO; ATOR40TA PO; BACL10TA PO; CETI10TA24 PO; CIPR500T86 PO; CLON0.1T PO; CLON1TAB3 PO; DICL75TA2 PO; DULO30CA2 PO; GABA400C10 PO; HYDR25TA9 PO; LISI10TA2 PO; METO50TA2 PO; PREG25CA PO; SPIR25TA PO; TEMA30CA6 PO
--- NOTE | 2017-09-11 14:00 | NUR ---
EKG RT AT BEDSIDE TO PERFORM EKG
--- NOTE | 2017-09-11 14:05 | NUR ---
DR ENRIQUEZ AT BEDSIDE TO PERFORM ASSESSMENT NEW ORDERS RECEIVED
[2017-09-11] MEDS ORDERED: NS 1000ML 1,000 ML IV STA (14:07)
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
[2017-09-11 14:11] VITALS: BP 105/66
--- NOTE | 2017-09-11 14:11 | PCM.EKG ---
[facility] Test Date: 2017-09-11 Test Time: 13:59:35 Pat Name: MEENA GUERRERO Department: Room: Gender: F Surgery Assistant: YASMIN : [id number] Requested By: PETERSON ENRIQUEZ Order Number: [id number] Reading MD: Measurements Intervals [place] Rate: 53 P: 63 HI: 186 QRS: 43 QRSD: 90 T: 45 QT: 422 QTc: 395 Interpretive Statements Sinus bradycardia Otherwise normal ECG No previous ECG available for comparison Please click the below link to view image of tracing.
--- NOTE | 2017-09-11 14:15 | NUR ---
ABG RT AT BEDSIDE TO OBTAIN ABG
--- NOTE | 2017-09-11 14:16 | NUR ---
LAB AT BEDSIDE FOR BLOOD DRAW, 5CC WASTE, 10CC DRAW FROM 20G IV TO RIGHT AC BY RN.
[2017-09-11] MEDS ORDERED: NS 1000ML 1,000 ML ONE (14:18)
[2017-09-11 14:23] LABS: BASOPHIL # 0.1 10^3/uL (0.0-0.1); BASOPHIL % 1.1 % (0.0-0.2); EOSINOPHIL # 0.3 10^3/uL (0.0-0.2); EOSINOPHIL % 5.4 % (0.0-5.0); HEMOGLOBIN 8.9 g/dL (12.0-15.0); LYMPHOCYTES # 2.2 10^3/uL (1.0-4.8); LYMPHOCYTES % 39.5 % (24.0-44.0); MEAN CELL HGB 24.4 pg (26-34); MEAN CELL HGB CONCENTRATION 30.7 g/dL (33-37); MEAN CORP VOLUME 79.5 fL (78-100); MEAN PLATELET VOLUME 10.9 fL (7.8-11.0); MONOCYTES # 0.5 10^3/uL (0.3-0.8); MONOCYTES % 9.3 % (5.0-12.0); NEUTROPHIL # 2.5 10^3/uL (1.8-7.7); NEUTROPHILS % 44.3 % (41.0-85.0); PLATELET COUNT 179 10^3/uL (150-400); RED CELL DISTRIBUTION WIDTH 23.9 % (11.5-14.5); WHITE BLOOD CELL 5.6 10^3/uL (4.5-11.0)
[2017-09-11 14:38] LABS: ABG PH 7.349 (7.350-7.450); BE(B) -3.3 mmol/L (-2.0-2.0); HCO3act 22.1 mmol/L (22.0-26.0); pO2 61.3 mmHg (75.0-100.0)
--- NOTE | 2017-09-11 14:47 | NUR ---
RAD AT BEDSIDE FOR CHEST XRAY
[2017-09-11 14:58] LABS: ALANINE AMINOTRANSFERASE(ML) 33 U/L (12-78); ALKALINE PHOSPHATASE 62 U/L (50-136); ASPARTATE AMINO TRANSFERASE 30 U/L (0-35); CARBON DIOXIDE 26.6 mmol/L (20.0-32); GLUCOSE 97 mg/dL (70-110)
--- NOTE | 2017-09-11 15:09 | DIREP ---
PROCEDURE:CHEST 1 VIEW COMPARISON:[facility], CR, XRAY CHEST SINGLE VW, 09/04/2017, 05:34 PM. INDICATIONS:PNA FINDINGS: LUNGS/PLEURA:No significant pulmonary parenchymal abnormalities. No effusions. VASCULATURE:Normal. Unremarkable pulmonary vasculature. CARDIAC:Mild cardiomegaly. MEDIASTINUM:Atherosclerotic aorta with no visible aneurysm. BONES:Mild degenerative disc disease and spondylosis without visible acute abnormalities. OTHER:Previous fusion of the cervical spine. CONCLUSION:No acute cardiopulmonary disease. No change. Dictated by: Jason Heredia M.D. on 09/11/2017 at 03:06 PM
[2017-09-11 15:25] VITALS: BP 104/51
[2017-09-11 15:25] LABS: BILIRUBIN,URINE NEGATIVE (NEGATIVE); UROBILINOGEN,URINE NORMAL (NEGATIVE)
[2017-09-11 15:27] LABS: APPEARANCE,URINE CLEAR (CLEAR); UA COLOR YELLOW (YELLOW)
[2017-09-11] MEDS ORDERED: PROTONIX IV IV STA ×2 (15:49→16:57)
[2017-09-11] MEDS ORDERED: PROTONIX IV IV ONE (16:08)
[2017-09-11 16:09] VITALS: BP 113/74
[2017-09-11 17:10] VITALS: BP 116/44
--- NOTE | 2017-09-11 17:34 | NUR ---
CT Patient going to CT
--- NOTE | 2017-09-11 17:48 | NUR ---
CT PT BACK FROM CT
--- NOTE | 2017-09-11 18:11 | DIREP ---
PROCEDURE:CT ABDOMEN/PELVIS W/ CONTRAST COMPARISON:None. INDICATIONS:abdominal pain, GI bleeding TECHNIQUE:Axial images were created through the abdomen and pelvis with non-ionic intravenous contrast material. No oral contrast was administered. Sagittal and coronal reconstructions were performed from source images. FINDINGS: LUNG BASES:Calcified atherosclerosis. Mild opacities in both lung bases suggesting atelectasis versus pneumonia. LIVER:There is a simple cyst in the right hepatic lobe measuring 10 mm. There is a tiny hypodensity in the central liver which is too small to characterize on image 23. BILIARY:Normal. No visible dilatation or calcification. PANCREAS:Normal. No lesion, fluid collection, ductal dilatation, or atrophy. SPLEEN:Normal. No enlargement or focal lesion. Adjacent splenule. ADRENALS:Normal. No mass or enlargement. URINARY TRACT:Normal. No focal lesions or hydronephrosis. AORTA/VASCULAR:Patient status post stent graft repair of the abdominal aorta. There is plaque in the right common iliac artery stent with stenosis measuring approximately 50%. RETROPERITONEUM:Normal. No mass or adenopathy. BOWEL/MESENTERY:No bowel obstruction, free fluid or free air. Large amount of stool in the ascending colon and cecum. Appendix is not seen. ABDOMINAL WALL:Normal. No mass or hernia. PELVIC ORGANS:Distended urinary bladder. This is nonspecific. Uterus is not visible. There are bilateral inguinal lymph nodes, largest is on the right which measures 1.7 x 1.0 cm. This is nonspecific. BONES:Sacral Tarlov cysts. There blastic lesions within the right iliac bone. Margins are smooth. Old appearing anterior wedge fracture in the thoracic spine. OTHER:Negative. CONCLUSION: 1. Bilateral basilar pulmonary opacities suggesting pneumonia or atelectasis. 2. No acute findings in the abdomen or pelvis as detailed above. Dictated by: Shyam Newberry M.D. on 09/11/2017 at 05:56 PM
[2017-09-11] MEDS ORDERED: ROCEPHIN IV STA (18:23)
[2017-09-11] MEDS ORDERED: NS 100ML 100 ML IV ONE (18:24)
[2017-09-11] MEDS: NS 1000ML 1,000 ML SCH (18:24)
[2017-09-11] MEDS ORDERED: ROCEPHIN ONE (18:25)
[2017-09-11 18:30] VITALS: BP 126/80
[2017-09-11 18:40] VITALS: BP 128/72
--- NOTE | 2017-09-11 18:40 | NUR ---
report received report from ER nurse. pt arrived on a wheelchair. Vebalized that she feel cold. Vital signs taken and recorded. No s/sx of any distress. Pt appeared weak. IV fluid ongoing with the second bag on NS running at 125 mls/hr. Assessment done. Call light placed within reach. Will continue to monitor.
[2017-09-11 18:51] LABS: MICROCYTOSIS 1+ (NEGATIVE)
--- NOTE | 2017-09-11 20:47 | NUR ---
oxygen pt O2 sat went down to 85%. Nurse placwed her on 2l of Oxygen via nasal cannula and informed RT. RT went to check pt.
[2017-09-11] MEDS ORDERED: ZOFRAN IV PRN (22:30)
[2017-09-11] MEDS ORDERED: LIPITOR PO SCH (22:30)
[2017-09-11] MEDS ORDERED: CLARITIN PO SCH (22:30)
[2017-09-11] MEDS: ALDACTONE PO SCH (22:30)
[2017-09-11] MEDS ORDERED: CYMBALTA PO SCH (22:30)
[2017-09-11] MEDS ORDERED: TYLENOL PO PRN (22:30)
[2017-09-12 00:36] VITALS: BP 133/75
[2017-09-12] MEDS: NS 1000ML 1,000 ML SCH ×2 (01:49→10:18)
[2017-09-12] MEDS: ALDACTONE PO SCH (01:50)
[2017-09-12 05:56] VITALS: BP 138/89
[2017-09-12 06:39] LABS: CALCIUM 8.5 mg/dL (8.4-10.5)
--- NOTE | 2017-09-12 06:45 | NUR ---
While assessing pt, I noticed pt had an episode of incontinence. Pt was aware, and pt was asked if we could clean her up and perform jg care. Pt refused. Pt educated on importance of jg care to prevent skin breakdown r/t incontinence. Pt still refused and stated she wanted to wait one hour before she would let us clean her up.
[2017-09-12 07:05] LABS: BASOPHIL # 0.1 10^3/uL (0.0-0.1); BASOPHIL % 0.9 % (0.0-0.2); EOSINOPHIL # 0.3 10^3/uL (0.0-0.2); EOSINOPHIL % 3.6 % (0.0-5.0); HEMOGLOBIN 9.7 g/dL (12.0-15.0); LYMPHOCYTES # 1.8 10^3/uL (1.0-4.8); LYMPHOCYTES % 25.8 % (24.0-44.0); MEAN CELL HGB 24.3 pg (26-34); MEAN CELL HGB CONCENTRATION 30.9 g/dL (33-37); MEAN CORP VOLUME 78.5 fL (78-100); MEAN PLATELET VOLUME 11.6 fL (7.8-11.0); MONOCYTES # 0.5 10^3/uL (0.3-0.8); MONOCYTES % 6.9 % (5.0-12.0); NEUTROPHIL # 4.3 10^3/uL (1.8-7.7); NEUTROPHILS % 62.5 % (41.0-85.0); WHITE BLOOD CELL 6.9 10^3/uL (4.5-11.0)
[2017-09-12 07:16] VITALS: BP 114/75
--- NOTE | 2017-09-12 07:30 | NUR ---
Rhonda care performed and linens changed
[2017-09-12] MEDS ORDERED: NEURONTIN PO SCH (09:00)
[2017-09-12] MEDS ORDERED: LOPRESSOR PO SCH (09:00)
[2017-09-12] MEDS ORDERED: VOLTAREN PO SCH (09:00)
[2017-09-12] MEDS ORDERED: LIORESAL PO SCH (09:00)
[2017-09-12] MEDS ORDERED: ZESTRIL PO SCH (09:00)
[2017-09-12] MEDS ORDERED: CATAPRES PO SCH (09:00)
[2017-09-12] MEDS ORDERED: KLONOPIN PO SCH (09:00)
[2017-09-12] MEDS ORDERED: ASPIRIN EC PO SCH (09:00)
[2017-09-12] MEDS ORDERED: LYRICA PO SCH (09:00)
[2017-09-12] MEDS ORDERED: HYDROCHLOROTHIAZIDE PO SCH (09:00)
[2017-09-12 10:39] LABS: ANISOCYTOSIS 2+ (NEGATIVE); BURR CELLS 2+ (NEGATIVE); EOSINOPHIL 1 % (1-4); LYMPHOCYTE 22 % (25-36); MONOCYTE 6 % (3-9); SEGMENTED NEUTROPHILS 71 % (31-76)
--- NOTE | 2017-09-12 10:49 | NUR ---
Dressing Dressing changed. Applied wound cleanser and redressed wound
[2017-09-12 13:42] VITALS: BP 114/75
--- NOTE | 2017-09-12 13:42 | NUR ---
DISCHARGE PT DISCHARGED AT THIS TIME. PT AND CAREGIVER UNDERSTAND ALL INSTRUCTIONS. PT LEAVES FLOOR BY WHEELCHAIR TO PRIVATE VEHICLE. NO OTHER NEEDS NOTED AT THIS TIME.
[2017-09-12] MEDS ORDERED: RESTORIL PO SCH (21:00)
--- NOTE | 2017-09-13 15:11 | HPH ---
ADMIT DATE: 09/12/2017 ADMISSION HISTORY AND PHYSICAL AND DISCHARGE SUMMARY CHIEF COMPLAINT: Bradycardia and hypertension. HISTORY OF PRESENT ILLNESS: Please see history and physical dictated by me on 09/05/2017, date of service 09/04/2017 for patient for full details. She has a history of being pretty much bedbound at home. She has caregivers at home. She is on multiple sedating medications including opiates and benzodiazepines. She also smokes marijuana. She presented this time exactly like last time, she presents with some bradycardia and hypotension likely due to medication side effect. She takes as said earlier numerous sedating medications plus clonidine, which has risk of causing these symptoms. She for the most part is bedbound with caregivers giving her medications. There have been no acute changes since seen on 09/04/2017. When talked to the patient on the floor, she stated she was feeling better. She is encouraged to be careful about all these centrally acting medications including opiates and benzodiazepines. PAST MEDICAL HISTORY, PAST SURGICAL HISTORY, ALLERGIES, HOME MEDICATIONS, SOCIAL HISTORY AND FAMILY HISTORY: Per H and P dated 09/05/2017, on date of service 09/04/2017 by me. REVIEW OF SYSTEMS: CARDIAC: Denies chest pain or shortness of breath. PULMONARY: No cough, sputum production or pleuritic chest pain. GASTROINTESTINAL: No nausea, vomiting, diarrhea or constipation. All else negative in 10 point review of system except as in HPI. PHYSICAL EXAMINATION: VITAL SIGNS: Upon arrival to the ER, height 152.4 cm, weight 47.9 kilograms, temperature 97.7, pulse 50, respiratory rate 14, blood pressure 105/66, O2 saturation 94% on room air. GENERAL: She is alert, chronic ill-appearing lady. HEENT: Pupils equal, round, reactive to light. Sclerae are anicteric. Oropharynx is clear. Mucous membranes are moist. NECK: Supple, no lymphadenopathy. CARDIOVASCULAR: At time of exam was regular rate and rhythm. LUNGS: Clear bilaterally, shallow inspiratory effort, no wheezing. ABDOMEN: Soft. Bowel sounds are present, nontender to palpation. EXTREMITIES: No cyanosis, clubbing or significant edema. NEUROLOGIC: She has right hemiparesis, which is chronic. LABORATORY DATA: CBC: White count 5.6, hemoglobin 8.9 and platelets 179. Differential: 44% neutrophils, 39% lymphocytes and 9% monocytes. Repeat hemoglobin is 9.7 the next morning. Sodium 137, potassium 5.0, chloride 103, CO2 is 26, BUN 39, creatinine 1.5, glucose 97, calcium 9.0, total bilirubin 0.4, AST 30, ALT is 33, alkaline phosphatase 62, troponin I is less than 0.02, total protein is 6.3, albumin 3.2. PT of 9.9. Blood gas done in the Emergency Room, pH is 7.35, pCO2 is 41, pO2 61, base excess is negative 3.3, lactate of 0.7, this is on room air. UA, pH is 6.0, specific gravity is 1.010, all else is negative. Urine drug screen is positive for benzodiazepines and marijuana. Stool is negative for occult blood. IMAGING STUDIES: Abdomen and pelvis CT reveals some basilar atelectasis bilaterally, otherwise negative acute. ASSESSMENT AND PLAN: This patient is a 67-year-old woman here with hypotension, bradycardia again after recent episodes of a similar admission due to drug side effects on numerous centrally acting medications with very poor functional status. 1. Continue her current medications. We will try to titrate off benzodiazepines and opiates as tolerated. 2. There is no significant change since her last admission. We will discharge home with caregivers with instructions to minimize sedating medications. DISCHARGE DIET: As tolerated. DISCHARGE ACTIVITY: As tolerated, but she has right hemiparesis and is for the most part bedbound by report. Discharge on home oxygen. She states she does have oxygen at home. DISCHARGE FOLLOWUP: With primary care physician in 1-2 weeks. Discharge plans were discussed with the patient. She is her own decision maker. She does understand and concur with plans. Time spent on history and physical and discharge on 09/12/2017 is 45 minutes. Frantz Pope MD DR: LENKA/nino JOB# [id number]
== END 2017-09-12 13:49 | disposition home or self-care (01) ==
LOC: ER 13:53 → EDBD 13:53 → MS 16:48 → INTOOBSV 16:48
PROVIDERS: ADMIT Internal Medicine; ATTEND Internal Medicine
DX: I95.9 Hypotension, unspecified (principal); R00.1 Bradycardia, unspecified
CPT/HCPCS: 36415 ×2; 71045; 74177; 80048; 80053; 80307; 81002; 82140; 82272; 82803; 83880; 84484; 85025 ×2; 85610; 85660; 86140; 87070; 87077; 87186; 93005; 96361 ×2; 96374; 96376; 99285; C9113; G0378 ×21; J0696; J7030 ×3; J7050; A9270; J8499; Q9965